=== PATIENT | female | born 1985 | race Caucasian/White ===

== ENCOUNTER 2019-12-22 09:06 | Inpatient (IN) ==
[2019-12-22] MEDS ORDERED: HUMULIN R IV ONE (10:27)
[2019-12-22] MEDS ORDERED: NS 1,000 ML IV ONE ×2 (10:27→14:58)
[2019-12-22] MEDS ORDERED: CLINDAMYCIN 600 MG/D5W 600 MG/50 ML IVPB IV ONE (10:27)
--- NOTE | 2019-12-22 11:05 | PROVIDER DOCUMENTATION ---
HPI-General Adult - General Chief Complaint: Facial Pain Stated Complaint: FACIAL SWELLING Time Seen by Provider: 12/22/19 10:14 Source: patient Allergies/Adverse Reactions: Patient Allergies Allergy/AdvReac Type Severity Reaction Status Date / Time amoxicillin Allergy RASH Verified 12/22/19 12:10 Home Medications: Home Medication List Medication Instructions Recorded Confirmed Last Taken Type NK [No Home Medications] 12/21/19 12/21/19 Unknown History - History of Present Illness -Gen Adult Nature of Presenting Problems: Patient is a 34 yof who c/o left upper dental pain x 4 days and swelling to left side of upper lip x 3 days. Was admitted at [facility] last night for elevated blood sugar and left AMA. Denies known hx/diagnosis of DM. Denies fever, abdominal pain, vomiting, or any other complaints. Pt non-toxic in appearance. Review of Systems - Adult - REVIEW OF SYSTEMS - ADULT Constitutional: reports: see HPI (hyperglycemia). denies: fever Eyes: reports: no symptoms reported Ears, Nose, Mouth & Throat: reports: see HPI Cardiovascular: reports: no symptoms reported Respiratory: reports: no symptoms reported Gastrointestinal: reports: no symptoms reported Genitourinary: reports: no symptoms reported Musculoskeletal: reports: no symptoms reported Integumentary: reports: no symptoms reported Neurological: reports: no symptoms reported Psychiatric: reports: no symptoms reported Endocrine: reports: no symptoms reported Hematologic/Lymphatic: reports: no symptoms reported Allergic/Immunologic: reports: no symptoms reported All Other Systems: Reviewed and Negative Past History - Adult - PAST MEDICAL HISTORY-ADULT Review of Records: reports: Old Records Reviewed, Nursing Assessment Review, Medications Reviewed Major Childhood Illnesses: reports: denies history Cardiovascular: reports: denies history Respiratory: reports: denies history Gastrointestinal: reports: denies history Obstetrical/Gynecological: reports: denies history Genitourinary: reports: denies history Musculoskeletal: reports: denies history Neurological: reports: denies history Psychiatric: reports: denies history Endocrine/Immune: reports: denies history Other Conditions: reports: denies history - PRIOR SURGERIES/PROCEDURES Surgical/Procedure History: reports: , orthopedic (extremity) (R wrist) - PRIOR HOSPITALIZATIONS Prior Hospitalizations: reports: for other non-related - IMMUNIZATION STATUS Childhood Immunizations: See Nurse Assessment Flu Vaccine: See Nurse Assessment - FAMILY HISTORY Family History: reviewed, not pertinent Physical Exam-General - PHYSICAL EXAM-ADULT Initial Vital Signs Reviewed: Yes - CONSTITUTIONAL General Appearance: alert, no apparent distress. negative: lethargic, slow to respond - EYES Eyes: PERRL/EOMI - HEAD, EARS, NOSE, MOUTH & THROAT HENMT: normocephalic/atraumatic, moist mucous membranes, TMs normal, other (left preauricular lymphadenopathy noted, 1 enlarged node measuring the circumference of a nickel. Dental abscess noted to left upper gum line. Extensive dental decay noted throughout.) - NECK Neck: full range of motion, supple, normal inspection - RESPIRATORY Respiratory: chest non-tender, lungs clear, normal breath sounds, no pleuratic chest pain, no respiratory distress, no accessory muscle use - CARDIOVASCULAR Cardiovascular: normal peripheral pulses, regular rate, rhythm, no gallop, no murmur, tachycardia - GASTROINTESTINAL (ABDOMEN) Abdominal Exam: normal bowel sounds, non tender, soft - LYMPHATIC Lymphatic: other (see note above) - MUSCULOSKELETAL Back Exam: normal inspection Extremity: normal range of motion, non-tender, normal gait, normal inspection - SKIN Integumentary: normal color, warm/dry, other (multiple sores noted to face and entire body). negative: cyanosis, diaphoresis, jaundice, mottled, pallor - NEUROLOGIC Neurologic: grossly normal, no motor/sensory deficits - PSYCHIATRIC Psych/Mental Status: normal mood/affect, normal thought content, normal thought process, oriented x 3 Progress - PLAN OF CARE/RESULTS Progress/Plan/Lab Results: Vital Signs - 8 hr 12/22/19 09:23 Temperature 98.3 F Pulse Rate 129 H Respiratory Rate 20 Blood Pressure 135/78 O2 Sat by Pulse Oximetry 99 Orders Category Date Time Status Cardiac Monitoring DIRECTED Care 12/22/19 10:15 Active ED: Urine Bedside NOW Care 12/22/19 10:15 Active FSBS/Accucheck Result Q15M Care 12/22/19 10:16 Active FSBS/Accucheck Result Q1H Care 12/22/19 10:15 Active Hypoglycemia/FSBS <50 or Range of 50-70 PRN Care 12/22/19 10:16 Active NEWS Score 2-4:Order NEWS Lactate Series NOW Care 12/22/19 09:29 Active Notify Physician ORDERED Care 12/22/19 10:16 Active Saline Loc DIRECTED Care 12/22/19 10:16 Active Saline Loc NOW Care 12/22/19 10:15 Active Vital Signs Order Q1H Care 12/22/19 10:15 Active ABG [RESP] Routine Lab 12/22/19 10:15 Ordered ACETONE SERUM [CHEM] Stat Lab 12/22/19 10:15 Uncollected BLOOD CULTURE [BLDCUL] Stat Lab 12/22/19 10:27 Uncollected CBC WITH NO DIFF [HEME] Stat Lab 12/22/19 10:15 Uncollected CK PROFILE [SP CHEM] Stat Lab 12/22/19 10:15 Uncollected COMPREHENSIVE METABOLIC PANEL [CHEM] Stat Lab 12/22/19 10:15 Uncollected LACTATE, PLASMA [CHEM] Stat Lab 12/22/19 10:15 Uncollected MAGNESIUM [CHEM] Stat Lab 12/22/19 10:15 Uncollected PHOSPHORUS [CHEM] Stat Lab 12/22/19 10:15 Uncollected POTASSIUM [CHEM] Timed Lab 12/22/19 10:15 Uncollected TROPONIN T HIGH SENSITIVITY Stat Lab 12/22/19 10:15 Uncollected URINALYSIS [URINALYSIS] Stat Lab 12/22/19 10:15 Uncollected URINE DRUG SCREEN PL Stat Lab 12/22/19 10:15 Uncollected URINE DRUG SCREEN Stat Lab 12/22/19 10:15 Uncollected 0.9% Sodium Chloride Inj [Ns] 1,000 ml Med 12/22/19 10:27 Active IV 999 mls/hr Clindamycin 600 mg/D5w Med 12/22/19 10:27 Active 600 mg in 50 ml IV NOW Insulin Human Regular [Humulin R] Med 12/22/19 10:27 Discontinued 10 unit IV NOW ONE Hypoglycemia Stat Oth 12/22/19 10:15 Ordered EKG [EKG] Routine Ther 12/22/19 10:15 Ordered Result Diagrams: 12/22/19 10:59 12/22/19 10:59 - CONSULTS/PCP/HOSPITALIST Notification #1 *Consult/PCP/Hospitalist*: AMANUEL Mendieta Time Discussed: 11:56 Reason/Comments: call back once all labs have resulted. Consult Disposition: other Departure - Departure Date of Disposition Decision: 12/22/19 Time of Disposition Decision: 12:21 DIAGNOSIS: Type 2 diabetes mellitus with hyperglycemia, without long-term current use of insulin, Necrotizing gingivostomatitis, Methamphetamine abuse, Facial cellulitis Sepsis without acute organ dysfunction Qualifiers: Sepsis type: sepsis due to unspecified organism Qualified Code(s): A41.9 - Sepsis, unspecified organism Disposition: ADMITTED INPATIENT 09 Certified Medical Emergency: Emergent Condition: Fair Referrals and Follow-Ups: None,PCP [Primary Care Provider] - - Critical Care Note This patient required my direct & personal management of CC.: Yes Total Time (mins): 40 Critical Care Statement: This patient required my direct personal management to treat or rule out processes, the absence of which, could potentiallly result in sudden, clinically significant life or limb threatening deterioration. Attestation - Physician/ ARTEMIO Attestation Patient care was provided by Advanced Practice Provider:: Yes Advanced Practice Provider:: Roger Voss Advanced Practice Provider documentation review:: The Mid-level provider documentation, treatment plan and medical decision making was reviewed by the physician who agrees with all treatment and medical decision making by the P. The physician spent face to face time with patient:: Yes (Dr. Chadwick) Advanced Practice Provider documentation review:: Supervising physician onsite and consulted in the evaluation and care of this patient. The physician did have a face to face encounter with the patient.
[2019-12-22 11:09] LABS: ALLEN TEST NO; BE 0.3 mmoll (-3.0-3.0); BLOOD TYPE ARTERIAL; METHB 1.5 % (0.0-1.5); O2(CT) 16.5 mL/dL (15.0-23.0); O2HB 92.3 % (95.0-99.0); PCO2(98.6) 38 mmHg (35-45); PO2(98.6) 78 mmHg (60-100); SAMPLE BLOOD; SAO2 98.2 % (95.0-100.0); THB 12.7 g/dL (11.5-17.4); pH(98.6) 7.42 (7.35-7.45)
[2019-12-22 11:11] LABS: MODALITY ROOM AIR
[2019-12-22 11:18] LABS: URINE SOURCE CLEAN CATCH
[2019-12-22 11:23] LABS: BILIRUBIN URINE NEGATIVE (NEGATIVE); BLOOD URINE NEGATIVE (NEGATIVE); COLOR STRAW; GLUCOSE URINE >1000 mg/dL (NEGATIVE); KETONE URINE TRACE mg/dL (NEGATIVE); LEUKOCYTES URINE NEGATIVE (NEGATIVE); NITRITE URINE NEGATIVE (NEGATIVE); PH URINE 6.5; PROTEIN URINE NEGATIVE (NEGATIVE); SP GRAVITY URINE 1.031; TURBIDITY URINE CLEAR (CLEAR); UR EPITHELIAL CELLS <10 /HPF (<10); URINE BACTERIA NEGATIVE /HPF; URINE RBC <10 /HPF (<10); URINE WBC <10 /HPF (<10); UROBILINOGEN URINE NORMAL (NORMAL)
[2019-12-22 11:32] LABS: HEMATOCRIT 35.4 % (37.0-47.0); HEMOGLOBIN 12.1 g/dL (12.0-16.0); MCH 30.8 PG (27-31); MCHC 34.2 g/dL (33-37); MCV 90.1 FL (81-99); MPV 10.8 FL (7.4-10.4); RBC 3.93 XMIL (4.2-5.4); RDW 11.4 % (11.5-14.5); WBC 20.72 X1000 (4.8-10.8)
[2019-12-22] MEDS ORDERED: ATIVAN IV ONE (11:47)
[2019-12-22] MEDS ORDERED: VANCOMYCIN 1 GM/NS 1 GM/250 ML IVPB IV ONE (11:48)
[2019-12-22] MEDS ORDERED: TORADOL IV ONE (11:48)
[2019-12-22] MEDS ORDERED: MORPHINE IV ONE (11:51)
[2019-12-22] MEDS ORDERED: ZOFRAN IV ONE (11:51)
[2019-12-22 12:03] LABS: AGAP 12; ALB/GLOB RATIO 1.3; ALBUMIN 3.9 g/dL (3.5-5.0); ALKALINE PHOSPHATASE 111 U/L (32-104); BUN 23 mg/dL (8-22); CALCIUM 9.3 mg/dL (8.8-10.2); CHLORIDE 91 mmol/L (98-107); CK PROFILE 74 U/L (24-173); COSMO 285; CREATININE 0.7 mg/dL (0.5-0.9); ESTIMATED GFR > 60; GOT 11 U/L (10-30); GPT 21 U/L (10-36); MAGNESIUM 1.8 mg/dL (1.5-2.7); PHOSPHORUS 3.2 mg/dL (2.7-4.5); POTASSIUM 4.8 mmol/L (3.5-5.1); SODIUM 126 mmol/L (136-145); TCO2 23 mmol/L (25-35); TOTAL BILIRUBIN 0.15 mg/dL (0.20-1.00); TOTAL PROTEIN 6.8 g/dL (6.3-8.3)
[2019-12-22 12:23] LABS: ACETONE SERUM NEGATIVE (NEGATIVE); GLUCOSE 618 mg/dL (70-104)
[2019-12-22 12:29] LABS: UR AMPHETAMINES QUAL PRESUMPTIVE POSITIVE (NONE DETECT); UR BARBITUATES QUAL NONE DETECTED (NONE DETECT); UR BENZODIAZEPIN QUAL NONE DETECTED (NONE DETECT); UR CANNABINOIDS QUAL NONE DETECTED (NONE DETECT); UR COCAINE QUAL NONE DETECTED (NONE DETECT); UR METHADONE QUAL NONE DETECTED (NONE DETECT); UR OPIATES QUAL NONE DETECTED (NONE DETECT); UR OXYCODONE QUAL NONE DETECTED (NONE DETECT); UR PCP QUAL NONE DETECTED (NONE DETECT)
--- NOTE | 2019-12-22 13:43 | HISTORY AND PHYSICAL ---
PRIMARY CARE PHYSICIAN: None. CHIEF COMPLAINT: Upper left-sided dental pain for 4 days with swelling to the left side of her upper lip for 3 days. She was apparently at [place] ER last night, and was found to have an elevated blood sugar, and she left AMA. HISTORY OF PRESENTING ILLNESS: This is a 34-year-old female who presents to [facility] with complaints of left upper dental pain for the past 4 days. She has had swelling to the left side of her upper lip for 3 days. She went to [facility] ER last night, and was found to have a new onset diabetes with a glucose of 956. She left AMA, and has returned today with this pain. Her white blood cell count is 20.72. Her glucose today is 618, sodium 126. Anion gap is 12. Acetone level is negative. She has a urine drug screen that is presumptive positive for amphetamines and states she does use meth, and last used about 2 weeks ago. Her teeth are in poor condition, and a lot appear to be rotting due to her meth use. She will be admitted to the PVC unit for further evaluation and treatment. PAST MEDICAL HISTORY: None. PAST SURGICAL HISTORY: and a right wrist surgery. FAMILY HISTORY: Reviewed and noncontributory. SOCIAL HISTORY: She lives alone. She smokes a pack of cigarettes a day, and has done so for 10+ years. Denies any alcohol use and uses meth. She last used she states approximately 2 weeks ago. LABORATORY DATA: White blood cell count of 20.72, hemoglobin 12.1, hematocrit 35.4, and platelets 394,000. ABG with a pH of 7.42, pCO2 of 38, PO2 78, bicarb 25, and this was on room air. Sodium 126, potassium 4.8, chloride 91, CO2 23, BUN of 23, creatinine 0.7, and glucose 618. Cardiac enzymes were negative. Plasma lactate of 1.8. Urinalysis is negative. Urine drug screen was presumptive positive for amphetamines. Acetone level was negative. REVIEW OF SYSTEMS: She denied any fever, chills, blurred vision, or dizziness. She does have pain to her upper teeth and swelling to the left upper lip. Denied any chest pain, coughing, or shortness of breath. Denied any abdominal pain, constipation, diarrhea, burning, or hurting with urination. PHYSICAL EXAMINATION: On arrival, she had a temperature of 98.3 degrees, pulse 129, respirations 20, blood pressure 135/78, saturating 99% on room air. GENERAL: This is a 34-year-old female who is lying in the bed. Answers questions appropriately. HEENT: The patient has multiple scabbed areas throughout her face and arms. Her teeth are rotting, and her gums are black with dental decay noted throughout. There is some mild swelling to the left side of her upper lip. She had some left auricular lymphadenopathy, and measuring about the size of a nickel on 1 enlarged. EYES: Pupils are equal, round, and reactive to light and accommodation. Extraocular movements are intact. NECK: Normal on inspection. Normal range of motion. LUNGS: Clear to auscultation bilaterally with equal lung expansion and chest wall movement. HEART: Regular rate and rhythm. No murmurs, rubs, or gallops. ABDOMEN: Soft, nontender, and nondistended. Bowel sounds are present x4 quadrants. MUSCULOSKELETAL: She had 5/5 strength x4 extremities. NEUROLOGICAL: The cranial nerves 2-12 appear grossly intact. ASSESSMENT: 1. New onset diabetes type 2 with hyperglycemia. 2. Sepsis due to gingivostomatitis and also facial cellulitis . 3. Leukocytosis. 4. Hyponatremia due to hyperglycemia. 5. Amphetamine abuse, tobacco abuse. PLAN: She will be admitted to the PVC unit. We will do fingerstick blood sugars q.4 hours with sliding scale insulin. We will check a hemoglobin A1c. Place on vancomycin per pharmacy protocol, clindamycin 600 IV q.8, morphine 2 mg IV q.3 hours p.r.n. Nicotine patch 21 mg transdermally daily. Recheck a CBC and BMP in the morning. Further orders after seen by attending. Of course, we did discuss stopping tobacco abuse and the meth use, and patient verbalized understanding. Dictated by AMANUEL Botello for Joselo Eldridge MD cc: AMANUEL Botello MD I agree with most components of history, physical, assessment and plan. A separate addendum has been dictated. [facility]
--- NOTE | 2019-12-22 13:45 | EKG Report ---
Test Performed on : 12/22/2019 1:42:55 PM Test Reason : possible DKA Blood Pressure : / mmHG Vent. Rate : 115 BPM Atrial Rate : 115 BPM P-R Int : 148 ms QRS Dur : 080 ms QT Int : 336 ms P-R-T Axes : 073 095 078 degrees QTc Int : 464 ms Sinus tachycardia. Rightward axis Borderline ECG When compared with ECG of 21-DEC-2019 17:21, (Unconfirmed) Previous ECG has undetermined rhythm, needs review QRS duration has decreased Nonspecific T wave abnormality no longer evident in Inferior leads Nonspecific T wave abnormality, improved in Anterolateral leads Unconfirmed Result
[2019-12-22] MEDS ORDERED: VANCOMYCIN IV PER PHARMACY MISC SCH (14:21)
[2019-12-22] MEDS ORDERED: ZOFRAN IV PRN (14:21)
[2019-12-22] MEDS ORDERED: MORPHINE IV PRN (14:21)
[2019-12-22] MEDS: LANTUS INSULIN SUBQ SCH (14:21)
--- NOTE | 2019-12-22 14:29 | ED EKG INTERP ---
This chart was entered by Morenita Glasgow Scribe, acting as scribe for Jan Chadwick MD. EKG Interpretation - EKG Time of EKG reading by physician:: 13:42 EKG Read and Signed by:: Jan Chadwick EKG Interpretation (*Must complete 3 of following elements*): Normal Rate: 115 Rhythm: sinus tachycardia [place]: right QRS: normal AL Interval: normal ST Wave: normal Attestation - Physician/ ARTEMIO Attestation Patient care was provided by Advanced Practice Provider:: Yes Advanced Practice Provider documentation review:: The Mid-level provider documentation, treatment plan and medical decision making was reviewed by the physician who agrees with all treatment and medical decision making by the MLP. The physician spent face to face time with patient:: No Advanced Practice Provider documentation review:: Supervising physician onsite and consulted in the evaluation and care of this patient. The physician did not have a face to face encounter with the patient. This chart was documented by the indicated scribe, (Morenita Glasgow Scribe) and accurately reflects the services I performed and decisions made by Netta carvalho Kent A., MD, as attested by the provider's signature.
--- NOTE | 2019-12-22 15:33 | SEPSIS: TISSUE PERFUSION ASSMT ---
Sepsis: Tissue Perfusion Assmt - Physical Exam Assessment Date: 12/22/19 Time Assessment Initialized: 15:15 Vital Signs: Last Vital Signs Temp 98.3 F 12/22/19 09:23 Pulse 116 H 12/22/19 13:40 Resp 14 12/22/19 13:40 BP 116/75 12/22/19 13:40 Pulse Ox 85 L 12/22/19 13:40 Height 5 ft 4 in Weight 58.967 kg Lung Sounds: lungs clear Heart Sounds: Regular Capillary Refill Time: Less Than 2 Seconds Peripheral Pulse Evaluation: radial (R): 2+, radial (L): 2+, dorsalis-pedis (R): 2+, dorsalis-pedis (L): 2+, posterior tibialis (R): 2+, posterior tibialis (L): 2+ Skin Exam: pink - Alternative Fluid Bolus Bolus Option: Alternative Fluid Resuscitation Bolus for morbidly obese patients with a BMI >30, Refer to [place] Body Weight Chart for Reference. Is patient's BMI >30?: No Fluid Bolus dosed using the [place] Body Weight Chart: No - Impression Impression: Tissue Perfusion Adequate (Additional bolus ordered. Antibiotics changed.)
[2019-12-22] MEDS: NICODERM PATCH TD SCH (15:41)
[2019-12-22 15:47] LABS: INR 0.94; PROTIME 12.7 Seconds (11.0-16.0)
[2019-12-22] MEDS ORDERED: MOTRIN PO PRN (15:56)
[2019-12-22] MEDS ORDERED: VANCOMYCIN 750 MG in NS 250 ML IV ONE (16:00)
[2019-12-22] MEDS: HUMALOG SUBQ SCH ×2 (17:00→22:43)
[2019-12-22] MEDS: ROCEPHIN 2 GM in NS 50 ML IV SCH (17:48)
[2019-12-22] MEDS ORDERED: NS 1,000 ML IV SCH (18:00)
--- NOTE | 2019-12-22 18:24 | HISTORY AND PHYSICAL ---
ADDENDUM: I agree with most components of history and physical, assessment and plan. In brief, Ms. Razo is a 34 year old lady with past medical history of active tobacco abuse, active amphetamine abuse, who came in with chief complaints of lip pain and mouth pain of about 48 hours duration. Apparently, the patient had gone to [place] [facility] 24 hours prior to current presentation with chief complaints of toothache, swollen lymph node, and increased thirst and urination. She was found to have hyperglycemia. She was recommended admission, but she had left against medical advice and she came back with same complaints to the hospital today. In the emergency room, she was found to have leukocytosis and tachycardia. She was given intravenous fluids, intravenous antibiotics, and hospitalist team was consulted for management of sepsis. New onset diabetes mellitus with hyperglycemia as her blood sugars were found to be 600 though she was not in DKA. SUBJECTIVE: At the time of my evaluation, patient is drowsy and does not appear in any distress. She complains of pain in the mouth. She denies any chest pain, shortness of breath, nausea, vomiting, or abdominal pain. OBJECTIVE: Vital Signs: Temperature of 98.3 degrees, pulse 129, respiratory rate 20, and blood pressure 135/78. She is saturating 95% on room air. PHYSICAL EXAMINATION: Not in acute distress. Oral cavity is moist. She has oral thrush. She has poor dental hygiene. She has a gum hypertrophy affecting upper teeth. She also has swollen upper lip. She has bilateral cervical anterior cervical lymphadenopathy. CARDIOVASCULAR: S1, S2 normal. No murmur or gallop. LUNGS: Air entry bilaterally equal. No wheezing, rhonchi, or crackles. ABDOMEN: Soft and nontender. No hepatosplenomegaly. EXTREMITIES: No lower extremity edema. She is arousable to strong verbal stimuli, and then becomes oriented and able to answer questions. She has 2+ radial, dorsalis pedis, and posterior tibial pulses. SKIN: Appears pink. NEUROLOGIC: Capillary refill time is less than 2 seconds. She is able to reposition herself in the bed, and answer all questions. LABORATORY: Labs suggestive of leukocytosis of 20,000, hemoglobin 12.1, and platelet of 394,000. She also has a blood sugar of 618 with normal anion gap of 12. Her bicarbonate was 23. Her urine toxicology was positive for amphetamine. She has glycosuria and ketones. MICROBIOLOGY: Blood cultures have been collected. ASSESSMENT AND PLAN: 1. Sepsis due to cellulitis affecting upper lip due to poor dental hygiene. 2. New onset uncontrolled diabetes mellitus presumably type 2. 3. Active tobacco abuse. 4. Active amphetamine abuse. PLAN: I will give patient intravenous fluid resuscitation with an additional 1 L of bolus to make a total of 2 L. I will keep her on continuous IV fluids after that if she is not able to take by mouth. I will start patient on intravenous clindamycin and intravenous ceftriaxone to cover anaerobic oral alex, and enteric gram-negative considering her recreational substance abuse. She does not have any known history of MRSA. I counseled her about smoking cessation as well as quitting recreational substance abuse. I answered all of her questions. I will start her on long-acting as well as short-acting insulin with every 4 hour blood sugar checks. Plan of care discussed with Ms. Razo. All of her questions have been satisfactorily answered. cc: Joselo Eldridge MD
[2019-12-22] MEDS: CLINDAMYCIN 600 MG/D5W 600 MG/50 ML IVPB IV SCH (19:35)
[2019-12-22 19:39] LABS: AGAP 9; BUN 20 mg/dL (8-22); CALCIUM 8.5 mg/dL (8.8-10.2); CHLORIDE 102 mmol/L (98-107); COSMO 276; CREATININE 0.6 mg/dL (0.5-0.9); ESTIMATED GFR > 60; GLUCOSE 252 mg/dL (70-104); POTASSIUM 4.2 mmol/L (3.5-5.1); SODIUM 132 mmol/L (136-145); TCO2 21 mmol/L (25-35)
[2019-12-23] MEDS: HUMALOG SUBQ SCH ×6 (01:10→22:35)
[2019-12-23] MEDS: CLINDAMYCIN 600 MG/D5W 600 MG/50 ML IVPB IV SCH ×3 (01:19→22:36)
[2019-12-23] MEDS ORDERED: NS 1,000 ML IV SCH (04:00)
[2019-12-23 06:42] LABS: BASO# 0.05 X1000 (0.0-0.2); BASO% 0.3 % (0.0-0.8); EOS# 0.31 X1000 (0.0-0.7); EOS% 1.9 % (0.0-10.0); HEMATOCRIT 34.8 % (37.0-47.0); HEMOGLOBIN 11.6 g/dL (12.0-16.0); IMM GRAN# 0.05 X1000 (0.0-0.04); IMM GRAN% 0.3 % (0.0-0.5); LYMPH# 3.87 X1000 (1.2-3.4); LYMPH% 23.2 % (20.5-51.1); MCH 30.8 PG (27-31); MCHC 33.3 g/dL (33-37); MCV 92.3 FL (81-99); MONO# 0.94 X1000 (0.11-0.59); MONO% 5.6 % (1.7-9.3); MPV 10.6 FL (7.4-10.4); NEUT# 11.45 X1000 (1.4-6.5); NEUT% 68.7 % (42.2-75.2); PLT 380 X1000 (130-400); RBC 3.77 XMIL (4.2-5.4); RDW 11.9 % (11.5-14.5); WBC 16.67 X1000 (4.8-10.8)
[2019-12-23 07:13] LABS: AGAP 9; BUN 15 mg/dL (8-22); CALCIUM 8.8 mg/dL (8.8-10.2); CHLORIDE 105 mmol/L (98-107); COSMO 276; CREATININE 0.5 mg/dL (0.5-0.9); ESTIMATED GFR > 60; GLUCOSE 130 mg/dL (70-104); POTASSIUM 3.8 mmol/L (3.5-5.1); SODIUM 137 mmol/L (136-145); TCO2 23 mmol/L (25-35)
[2019-12-23] MEDS: LANTUS INSULIN SUBQ SCH (09:11)
[2019-12-23] MEDS: NICODERM PATCH TD SCH (09:11)
[2019-12-23] MEDS ORDERED: VANCOMYCIN 1,450 MG in NS 250 ML IV SCH (10:00)
--- NOTE | 2019-12-23 11:54 | PROGRESS NOTE ---
DATE: 12/23/2019 INTERVAL HISTORY: No acute events overnight. Her blood sugar has been better controlled on current dose of sliding scale insulin, as well as long-acting insulin. SUBJECTIVE: Ms. Razo states she ate her breakfast. She denies any chest pain. She states she was able to go to the bathroom. She denies any shortness of breath. No nausea, vomiting, or abdominal pain. She is sleepy again today. OBJECTIVE: Vital Signs: Temperature of 98.5 degrees, pulse 109, respiratory rate 16, blood pressure 109/63, saturating 95% on room air. General: Not in acute distress. HEENT: Her swelling of the upper lip is decreasing. Oral cavity is moist. I could see oral thrush. Lungs: Air entry bilaterally equal. No wheeze, rhonchi, or crackles. Cardiovascular: S1, S2 normal. No murmur, rub, or gallop. She is tachycardic. Abdomen: Soft, nontender. Extremities: No lower extremity edema. Skin: She has multiple pustules affecting the entire body. Neurologic: She is drowsy, but arousable, and becomes alert and oriented. LABORATORY DATA: Suggestive of persistent leukocytosis of 16,000, hemoglobin 11.6, platelets 380,000. Her sodium is 137, BUN 15, creatinine 0.5, blood sugar 134. MICROBIOLOGY: No positive microbiological data so far. ASSESSMENT AND PLAN: 1. Sepsis due to upper lip and facial cellulitis, as well as gingivostomatitis. Follow up final blood culture results. Continue intravenous clindamycin and ceftriaxone. Continue ibuprofen as needed for pain. 2. New-onset uncontrolled diabetes mellitus type 2. Continue current dose of long-acting glargine, and will give her sliding scale insulin as needed. 3. Active tobacco abuse and active amphetamine abuse. She was counseled about quitting these substances. Will give her a nicotine patch. 4. Oral thrush. Start the patient on nystatin suspension. 5. Disposition. Continue to monitor the patient in [facility] as we await blood culture results. Plan of care discussed with her. Her questions have been answered. cc: Joselo Eldridge MD
[2019-12-23] MEDS: TYLENOL PO PRN (12:30)
[2019-12-23] MEDS: MYCOSTATIN SUSP PO SCH ×3 (12:30→22:36)
[2019-12-23] MEDS: ROCEPHIN 2 GM in NS 50 ML IV SCH (16:11)
[2019-12-23] MEDS: GLUCOPHAGE PO SCH (18:57)
[2019-12-24] MEDS: CLINDAMYCIN 600 MG/D5W 600 MG/50 ML IVPB IV SCH ×2 (04:53→12:21)
[2019-12-24] MEDS: HUMALOG SUBQ SCH ×2 (06:51→11:05)
[2019-12-24 07:49] LABS: BASO# 0.05 X1000 (0.0-0.2); BASO% 0.5 % (0.0-0.8); EOS# 0.36 X1000 (0.0-0.7); EOS% 3.3 % (0.0-10.0); HEMATOCRIT 35.2 % (37.0-47.0); HEMOGLOBIN 11.5 g/dL (12.0-16.0); IMM GRAN# 0.03 X1000 (0.0-0.04); IMM GRAN% 0.3 % (0.0-0.5); LYMPH# 2.93 X1000 (1.2-3.4); LYMPH% 26.7 % (20.5-51.1); MCH 30.3 PG (27-31); MCHC 32.7 g/dL (33-37); MCV 92.9 FL (81-99); MONO# 0.82 X1000 (0.11-0.59); MONO% 7.5 % (1.7-9.3); MPV 10.3 FL (7.4-10.4); NEUT% 61.7 % (42.2-75.2); PLT 363 X1000 (130-400); RBC 3.79 XMIL (4.2-5.4); RDW 11.8 % (11.5-14.5); WBC 10.99 X1000 (4.8-10.8)
[2019-12-24] MEDS: NICODERM PATCH TD SCH (08:41)
[2019-12-24] MEDS: LANTUS INSULIN SUBQ SCH (08:41)
[2019-12-24] MEDS: GLUCOPHAGE PO SCH (08:41)
[2019-12-24] MEDS: MYCOSTATIN SUSP PO SCH ×2 (08:41→12:21)
[2019-12-24] MEDS: TYLENOL PO PRN (12:25)
[2019-12-24 15:25] VITALS: BP 114/75
--- NOTE | 2019-12-24 21:55 | PROGRESS NOTE ---
ADMISSION DATE: 12/22/2019 DISCHARGE DATE: 12/24/2019 INTERVAL HISTORY: No acute events overnight. SUBJECTIVE: Ms. Razo is feeling better today. She is able to chew her food better. Her vital signs are unremarkable. She is breathing well on room air. Her blood sugars are well controlled. LABORATORIES: Suggest WBC is going down. Blood sugars are within acceptable range. ASSESSMENT AND PLAN: 1. Sepsis due to cellulitis. 2. New-onset type 2 diabetes mellitus. 3. Active substance and tobacco abuse. PLAN: I will discharge patient on antibiotics. Will provide her insulin education. I discharged her on insulin and metformin. I instructed to her that, if she is not able to afford insulin for some reason, she can increase her metformin dose to 1000 mg b.i.d. She is in agreement. Significant other at bedside. cc: Joselo Eldridge MD MTDD
--- NOTE | 2019-12-24 22:08 | DISCHARGE SUMMARY ---
ADMISSION DATE: 12/22/2019 DISCHARGE DATE: 12/24/2019 DISCHARGE DISPOSITION: Home. DISCHARGE CONDITION: Hemodynamically stable. Her blood sugar has been within acceptable range. Her blood cultures have not shown any growth. She has been counseled about stopping the use of tobacco, amphetamine and all other recreational substances. She is in agreement. She was provided insulin education at the time of discharge. Prescriptions have been provided for antibiotics metformin, and insulin. DISCHARGE DIAGNOSES: 1. Sepsis due to upper lip, gum, facial cellulitis, as well as acute gingivostomatitis. 2. New-onset uncontrolled diabetes mellitus type 2. 3. Active tobacco abuse. 4. Active amphetamine abuse. 5. Oral thrush. 6. Poor dental hygiene. OTHER DIAGNOSIS: Prior history of substance abuse. DISCHARGE MEDICATIONS: 1. Clindamycin 300 mg every 6 hours, 25 capsules. 2. Metformin 500 mg b.i.d. with meals, 60 tablets with 1 refill. 3. Insulin NPH 70/30, 10 units subcutaneously b.i.d., 1 vial with 1 refill has been prescribed. VITALS AT THE TIME OF DISCHARGE: Temperature 98.5 degrees, pulse rate 104, respiratory rate 18, blood pressure 114/75, saturating 93% on room air. PHYSICAL EXAMINATION: Not in acute distress. Oral cavity is moist. Her oral thrush has resolved. She has multiple missing teeth. Her swelling of the lip, face and gum has been declining. Lungs: Air entry bilaterally equal. No wheeze or crackles. S1, S2 normal. No murmur or gallop. Abdomen: Soft, nontender. No lower extremity edema. She has multiple pustules over her entire body. She is alert and oriented x3. LABORATORIES AT THE TIME OF DISCHARGE: Her WBC improved from 20,000 on presentation to 10,000 at the time of discharge. Hemoglobin 11.5, platelets 363,000. On presentation, her blood glucose was 618, which was 216 at the time of discharge. Urinalysis had glucosuria. Acetone was negative. Urine toxicology positive for amphetamine. Microbiology: Blood culture did not have any growth. IMAGING: No imaging. Electrocardiogram on presentation had sinus tachycardia with rightward axis. HOSPITAL COURSE SUMMARY: Ms. Razo is a 34-year-old lady with no real past medical history except active tobacco and amphetamine abuse, who had come to the emergency room at [facility] approximately 24 hours prior to current presentation for chief complaints of toothache, swollen lymph node, increased thirst and urination. At that time, she was found to have new-onset diabetes mellitus with hyperglycemia without ketoacidosis. She was advised hospital admission, but she had left against medical advice and she came in with a similar complaint the next day to [facility] ER and, on presentation, she was found to have temperature of 98.3 degrees, pulse of 129, respiratory rate of 20 and blood pressure of 135/78. She was saturating 99% on room air. [place] [address], hemoglobin of 12.1, platelets of 394,000. Her pH was 7.42, and her bicarbonate was 23. Her anion gap was 12. Her blood glucose was 618. She was diagnosed to have uncontrolled diabetes mellitus type 2, as well as sepsis due to facial cellulitis, so the hospitalist team was consulted for further management. The patient was started on basal bolus subcutaneous insulin regimen and intravenous antibiotics and was admitted for further management. With basal bolus regimen, her blood sugars became better controlled and she was also started later on oral metformin. At the time of discharge, her blood sugars are in the 200 range and she is provided a prescription of insulin NPH 70/30, as well as metformin and was advised to have follow up with her regular provider. Blood culture did not detect any growth and her facial cellulitis, as well as swelling of the upper lip, improved with intravenous antibiotics so it was changed to oral clindamycin and she was provided a prescription of that. The patient was counseled about stopping substance abuse and all of her questions were answered. TIME SPENT: 25 minutes were spent. cc: Joselo Eldridge MD
== END 2019-12-24 16:32 | disposition home or self-care (01) | DRG 872 ==
LOC: ED 09:06 → EDIPHOLD 13:44 → 2N 22:02 → 4N 12-23 18:46
PROVIDERS: ATTEND Internal Medicine